=== PATIENT | male | born 1955 | race Caucasian/White ===

== ENCOUNTER 2017-12-21 16:09 | Emergency (ER) | payer MEDICAID, OTHER ==
[~2017-12-21] VITALS: Ht 182.9 cm; Wt 95.4 kg
[~2017-12-21 16:09] MED LIST: CLON1 PO; GABA-531 PO; QUET100T PO; QUET25TA PO; SERT50TA12 PO
[2017-12-21 18:10] VITALS: BP 146/98
== END 2017-12-21 18:41 | disposition home or self-care (01) ==
LOC: EMS 16:09
DX: F31.9 Bipolar disorder, unspecified (principal); F19.90 Other psychoactive substance use, unspecified, uncomplicated
CPT/HCPCS: 99284